=== PATIENT | female | born 1985 | race Hispanic/Latino ===

== ENCOUNTER 2024-04-28 10:32 | Day surgery (SDC) | payer OTHER, SELFPAY ==
[2024-04-28] VITALS (12 sets, daily range): BP systolic 101–130; BP diastolic 60–79; BMI 28.5; BMI 29.8
--- NOTE | 2024-04-28 17:08 | SUR.OPER ---
Pt tearful upon arrival. Offered support, warm blankets and positioning for comfort. Pt has numerous piercings, OR staff in contact with anesthesia, making arrangements for pt to remove jewelry and piercings. Pt's mother @ bedside.
--- NOTE | 2024-04-28 18:08 | W.SUR.POST ---
Surgical Immediate Post Op
Note
Pre Op Diagnosis: Right vulvar abscess, presumed MRSA + given recent exposure
Post Op Diagnosis: Right vulvar abscess, presumed MRSA + given recent exposure
Procedure Performed: Incision and drainage of vulvar hematoma
Primary Surgeon: Corey Mcmullen MD
Anesthesia: IV Sedation
Estimated Blood Loss: 5cc
Specimens/Cultures: wound culture
Doppler/Duplex/Angio (Y/N): N
Complications: None
Operative Findings: 6 x3 cm right vulvar abscess, loculations and purulent drainage, irrigation, then packing placed in wound
[2024-04-28] MEDS: DUONEB 3 ML INH (19:20)
[2024-04-28] MEDS: TORADOL 15 MG IV (19:20)
[2024-04-28] MEDS: NORMOSOL-R/PLASMALYTE-A 1000 IV (19:21)
[2024-04-28] MEDS: DILAUDID 0.5 MG IV ×2 (19:33→22:47)
[2024-04-28 20:45] LABS: ALT (SGPT) 14 U/L (0-35); AST (SGOT) 19 U/L (14-36); Albumin 4.3 g/dl (3.5-5.0); Alkaline Phosphatase 75 U/L (38-126); Blood Urea Nitrogen 10 mg/dl (7-17); Calcium 8.6 mg/dl (8.4-10.2); Carbon Dioxide 18 mmol/L (22-30); Chloride 104 mmol/L (98-107); Estimated Creatinine Clearance 98 ml/min; Glucose 133 mg/dl (70-99); Potassium 4.5 mmol/L (3.5-5.1); Sodium 139 mmol/L (135-145); Total Bilirubin 0.4 mg/dl (0.2-1.3); eGFR > 60.00
--- NOTE | 2024-04-28 20:58 | PHA.VAN.IN ---
Assessment
- Assessment
Renal Function: Unknown baseline
Concomitant Antimicrobials: NONE
- Previous Dosing Experience
Previous Regimen: NONE
AUC Dosing Plan
- Dosing Variables
Dosing Weight (kg): 71.6
Dosing CrCl (ml/min): 98
Vd coefficient (L/kg): 0.7
- Empiric Dosing
Initial / Loading Dose: 1750MG TOTAL
Maintenance Regimen: 1GM IV Q12H
Estimated AUC (mcg*h/mL): 485
Estimated Peak (mcg*h/mL): 31
Estimated Trough (mcg/ml): 12.1
Estimated Half Life (H): 8.1
Pharmacokinetics Vancomycin I
- -
Patient Age: 38
Patient Sex: Female
Vancomycin Day #: 1
Indication: Skin And Soft Tissue ([R] VULVAR ABSCESS)
Requesting Provider: DEB
Height / Weight:
Height 5 ft 1 in
Actual Weight 71.577 kg
- Vital Signs / Lab Results
Temp Pulse Resp BP Pulse Ox
98.6 F 93 18 113/76 95
04/28/24 20:31 04/28/24 20:31 04/28/24 20:31 04/28/24 20:31 04/28/24 20:31
Lab Results - Chemistry
04/28/24
20:00
BUN 10
Creatinine 0.7
Estimated Creat Clear 98
Albumin 4.3
Microbiology Results
04/28/24 17:46 Gram Stain - Preliminary
Abscess
[2024-04-28] MEDS: VANCOCIN 150 IV (21:45)
--- NOTE | 2024-04-28 22:57 | PTCARENOTE ---
Patient arrived from PACU at approximately 1900. Patient AAOx3. VSS as documented. Assessment as documented. Patient w/ surgical wound to R groin from vulvar abscess - wound assessed. Patient oriented to room. Bed in lowest position. Call daley
within reach.
[2024-04-28] MEDS: OFIRMEV 100 IV (23:55)
--- NOTE | 2024-04-29 | PTCARENOTE ---
Patient w/ HRs of 103 and 106 during postop vitals. JUDICIAL REPORTER notified of findings per order. Patient complaining of 'being in a cold sweat'. Patient states this 'cold sweat' feeling has been happening throughout the week prior to surgery due to pain. JUDICIAL REPORTER
notified. One time dose of Ofirmev ordered and administered - see OCT.
[2024-04-29] MEDS: NORMOSOL-R/PLASMALYTE-A 1000 IV (02:48)
[2024-04-29] MEDS: TORADOL 15 MG IV ×3 (02:49→13:17)
[2024-04-29] MEDS: DILAUDID 0.5 MG IV ×4 (02:51→12:43)
[2024-04-29 03:40] VITALS: BP 101/63
[2024-04-29] MEDS: VANCOCIN 200 IV (05:29)
[2024-04-29 06:28] LABS: % Basophils 0.1 % (0-2); % Immature Granulocytes 0.4 % (0-0.5); % Lymphocytes 7.6 % (20.5-51.1); % Monocytes 3.8 % (1.7-9.3); % Neutrophils 88.1 % (42.2-75.2); Absolute Lymphocytes 0.7 10^3/uL (1.2-3.4); Absolute Monocytes 0.4 10^3/uL (0.1-0.6); Absolute Neutrophils 8.5 10^3/uL (1.4-6.5); Hematocrit 31.1 % (37.0-47.0); Hemoglobin 10.5 g/dL (12.0-16.0); Mean Corp Hgb Conc. 33.8 g/dL (33.0-37.0); Mean Corpuscular Hgb 28.9 pg (27.0-31.0); Mean Corpuscular Volume 85.7 fL (81.0-99.0); Mean Platelet Volume 10.2 fL (7.4-10.4); Nucleated Red Blood Cells % 0 %; Platelet Count 333 10^3/uL (130-400); Red Blood Cell Count 3.63 10^6/uL (4.20-5.40); Red Cell Dist. Width 12.2 % (11.5-14.5); White Blood Cell Count 9.6 10^3/uL (4.8-10.8)
[2024-04-29 06:50] LABS: Blood Urea Nitrogen 9 mg/dl (7-17); Carbon Dioxide 20 mmol/L (22-30); Chloride 104 mmol/L (98-107); Estimated Creatinine Clearance 114 ml/min; Potassium 5.1 mmol/L (3.5-5.1); Sodium 139 mmol/L (135-145)
[2024-04-29 07:35] VITALS: BP 116/73
--- NOTE | 2024-04-29 08:36 | W.PN.GYN ---
Today's Communication / Plan
-
advance diet, followup ID and wound care team recommendations
Physician Note
-
S: Patient was evaluated on AM rounds. She reported having moderate incisional pain overnight especially when walking to the bathroom to void since the urine stung her incision. Dilaudid and percocet had controlled her pain. Tolerating clears and
would like advancement in diet. Reports minimal output form drain. Denies SOB, chest pain, nausea/vomiting.
O:
GA: Well appearing female in NAD
Abd: soft, nontender, nondistended
/SCIENTIFIC MANAGER: right vulva erythematous and indurated. no fluctuance. iodoform packing in incision draining minimal purulent output; covered by 4x4 gauze saturated with minimal bloody output, moderately tender.
Extremities: negative LE edema
Intake and Output
04/27/24 04/28/24 04/29/24 04/30/24
06:59 06:59 06:59 06:59
Intake Total 1910 / 1910
Output Total 975 / 975
Balance 935 / 935
Intake:
Oral fluids 360 / 360
IV fluids (Total) 1000 / 1000
IV piggybacks 550 / 550
Output:
Urine, Voided 975 / 975
Vital Signs
Temp Pulse Resp BP Pulse Ox
98.2 F 80 16 116/73 98
04/29/24 07:35 04/29/24 07:35 04/29/24 07:35 04/29/24 07:35 04/29/24 07:35
Lab Results
04/29/24 05:17
04/29/24 05:17
A/P
38yoF POD1 s/p InD right vulvar abscess and recent MRSA exposure. Hgb stable. Patient was afebrile overnight and WBC remained normal.
- Continue IV vancomycin, dosing per pharmacy
- Followup MRSA swab
- Followup OR culture
- Continue contact precautions
- Advance diet to regular
- Discontinue IV fluids
- Continue DVT prophylaxis
- Continue strict Is and Os
- Vitals per nursing protocol
- Ambulate with assistance
- Continue home meds
- Continue toradol/tylenol prn mild/moderate pain; Percocet for severe pain
- Dilaudid for breakthrough pain
- Followup ID recommendations for DC antibiotics
- Followup woundcare recommendations
- Care Management consult for outpatient VNS
- Possible discharge home tonight
--- NOTE | 2024-04-29 08:43 | PHA.VAN.FU ---
Vancomycin Assessment / Plan
- Assessment
Renal Function: Stable
WBC's are: WNL
In the past 24 hrs, patient has been: Afebrile
- Dosing Plan
Continue: Vanc 1000mg Q12H
- Monitoring Plan
No level(s) ordered at this time: consider levels in next few days
- Follow Up
Pharmacy will continue to follow.
Vancomycin Follow UP
- -
Patient Age: 38
Patient Sex: Female
Vancomycin Day #: 2
Indication: Skin And Soft Tissue
Requesting Provider: Dr. Bain
Pertinent Antimicrobial Allergies:
NKDA
Height / Weight:
Height 5 ft 1 in
Actual Weight 71.577 kg
- Vital Signs / Lab Results
Temp Pulse Resp BP Pulse Ox
98.2 F 80 16 116/73 98
04/29/24 07:35 04/29/24 07:35 04/29/24 07:35 04/29/24 07:35 04/29/24 07:35
Lab Results - Hematology
04/29/24
05:17
WBC 9.6
Lab Results - Chemistry
04/28/24 04/29/24
20:00 05:17
BUN 10 9
Creatinine 0.7 0.5 L
Estimated Creat Clear 98 114
Albumin 4.3
Microbiology Results
04/28/24 17:46 Gram Stain - Preliminary
Abscess
--- NOTE | 2024-04-29 08:58 | CON.ID ---
Addendum entered and electronically signed by Minnie Bain MD 04/29/24 11:41:
Primary team planning on discharging patient today.
Can dc on empiric doxycycline 100mg po bid x 10 days.
Will follow OR final cx data; will call pt if need for abx change.
D/W Tila Stopmanjit
Original Note:
Consultation
-
Date/Time Consultation Requested: 04/28/20241813
Date/Time Consultation Performed: 04/29/2024 0900
Requesting Provider: Dr. Corey Mcmullen
Performing Provider: Dr. Minnie Bain
Reason for Consultation: Vulvar abscess
Chief Complaint / Past History
Chief Complaint
Severe vulva pain
History of Present Illness
38 year old female with hx sarcoid, not on tx, who developed pimple like lesion on the right side of vulva Tuesday 04/24. She applied warm compress but it kept enlarging. 04/26, she went to [facility] ED where the abscess was drained. She was
prescribed Bactrim. Her vulva became edematous and very painful. She saw urology on 04/27 who took her to OR the next day s/p I+D of 6x3cm right labial abscess, + purulence noted. Of note, her recently suffered from scrotal abscess s/p I+D
at Urology office 04/05/24 and treated with Bactrim and cephalexin. No cx sent from Urology office. is doing well. Her 9 year old son was the first one with MRSA soft tissue abscesses over the summer, now on bleach bath twice a week and
doing well. She tries not sharing household items. She reports shaving her genital with disposable razor prior to the abscess. No fevers or chills.
Past History
Past Medical History: None
Additional Past Medical History:
Migraines
Asthma
Sarcoid (not on tx)
Additional Past Surgical History:
Tubal ligation
Allergy History:
No Known Allergies Allergy (Verified 04/28/24 16:40)
Medications Reviewed: Yes
Current Antibiotics:
Vancomycin
Social History
Tobacco: Non-Smoker
Alcohol: None
Personal:
Living: With Family
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 )
Family History
Family History: Not Pertinent
Review of Systems
Review of Systems
General: Negative Fever, Chills or Change in Appetite
HEENT: Negative Sinus Problems or Headache
Cardiovascular: Negative Chest Pain
Respiratory: Negative Dyspnea or Cough
Gasteroenterology: Other (no diarrhea); Negative Nausea or Vomiting
Genital / Urological: Negative Flank Pain
Endocrine: Negative Weakness
Skin / Hair / Nails: Negative Rash
Neurological: Negative Dizziness
All systems: All other systems were reviewed and were negative
Vital Signs
Temp Pulse Resp BP Pulse Ox
98.2 F 80 16 116/73 98
04/29/24 07:35 04/29/24 07:35 04/29/24 07:35 04/29/24 07:35 04/29/24 07:35
Physical Exam
Physical Exam
Constitutional: Other (Acute distress with pain during unpacking of wound.)
Eyes: No Conjunctival Hemorrhage and Sclera Anicteric
Cardiovascular: Regular Rate and S1/S2
Pulmonary: Clear
Gastrointestinal: Soft, Non Tender, Non Distended and Normal Bowel Sounds
Genito-Urinary: Negative CVA Tenderness
Extremities: Negative Edema
Wound: Other (Examined with wound ROXANNE Jenkins. Right labia mild induration/erythema. Small wound deep with very long iodoform packing, extreme pain during removal of packing, no pus)
Neurological: AO x 3
Lab / Diagnostic Study Results
04/29/24 05:17
04/29/24 05:17
Abs Immat Gran (auto) 0.0 10^3/uL (0-0.05) 04/29/24 05:17
Absolute Neuts (auto) 8.5 10^3/uL (1.4-6.5) H 04/29/24 05:17
Absolute Lymphs (auto) 0.7 10^3/uL (1.2-3.4) L 04/29/24 05:17
Absolute Monos (auto) 0.4 10^3/uL (0.1-0.6) 04/29/24 05:17
Absolute Basos (auto) 0.0 10^3/uL (0-0.2) 04/29/24 05:17
Immature Gran % 0.4 % (0-0.5) 04/29/24 05:17
Neutrophils % 88.1 % (42.2-75.2) H 04/29/24 05:17
Lymphocytes % 7.6 % (20.5-51.1) L 04/29/24 05:17
Monocytes % 3.8 % (1.7-9.3) 04/29/24 05:17
Eosinophils % 0.0 % (0-6) 04/29/24 05:17
Basophils % 0.1 % (0-2) 04/29/24 05:17
Microbiology Results
Micro:
04/28/24 22:10 MRSA Screen - Pending
Nose
04/28/24 17:46 Wound Culture - Pending
Abscess Gram Stain - Preliminary
04/28/24 17:46 Anaerobic Culture - Pending
Abscess
Assessment / Plan
# Right vulva large abscess s/p I+D 04/28/24.
Suspect MRSA from household transmission
Await OR cx.
MRSA screen pending.
Continue IV Vancomycin for now.
Appreciate wound care.
[2024-04-29] MEDS: SINGULAIR 10 MG PO (09:02)
[2024-04-29] MEDS: PERCOCET 5/325 2 TABLET PO ×2 (09:13→17:28)
--- NOTE | 2024-04-29 10:36 | WOUNDNOTE ---
R VULVA WITH Q TIP
--- NOTE | 2024-04-29 10:37 | WOUNDNOTE ---
WON RN note: Patient admitted with abscess of vulva.
See H&P for complete history. Lives with and 5 children.
PMH: Tubal ligation, UTI, migraines, ex smoker, sarcoidosis and foot surgery.
Wound Location and type/assessment: Patient admitted with: R vulvar abscess that was I&D'd on 04/[address] Mcmullen. Started out as a [facility] patient. At [facility] area drained in ER on 04/24. Recent MRSA exposure at home from child, OR
culture pending. Asked to see patient by Urologist Tila Messina for wound care recommendations. Patient seen along with Dr. Bain, medicated for pain prior by nurse Edwards. Upon removal of packing patient crying out in pain. IV Dilaudid given by nurse
in order to remove remainder of extensive packing. Patient reports that she was told there were many pockets that needed to be drained from abscess. Surrounding tissue of vulva does not appear to be infected, drainage serosanguineous, no odor. Depth
3cm proximally with approximately 2x1 opening. Multiple discussions with Urologist regarding plan of care upon discharge.
Appetite: Good
Pressure redistribution devices in place: Accumax, patient is ad rhonda.
Plan: 1/4' iodoform packing strip placed into 3cm proximal tunnel with tail end visible. Covered with folded 4x4 gauze, ABD pad and mesh underwear. Very painful upon packing, unable to tolerate deeper packing. Confirmed the above dressing with
urologist. Packing to remain in until VN first apt. Once packing removed then daily saline flushes into wound cavity by patient, then dry gauze outer dressing daily and prn drainage. Can shower but careful not to get dressing wet. Patient also to be
seen by wound care center Dr. Gudino next week per urology. Spoke to nurse staff community health Cynthia who confirmed apt is made for next Thursday, patient aware. [facility] is set up upon discharge per note. Teaching done with patient regarding wound care and
above plan. Supplies provided to patient to take home upon discharge. Ice pack given to patient upon request. Updated Urologist Mayuri and confirmed on the above plan.
Updated nurse Grace, care plan and will follow as needed.
Note to case management of equipment requested for discharge:
Recommend follow up at wound care center upon discharge.
[2024-04-29] MEDS: NORMOSOL-R/PLASMALYTE-A IV (11:01)
--- NOTE | 2024-04-29 11:11 | CM ---
Addendum entered by Maribel Ordaz RN 04/29/24 16:25:
Patient and attending updated.
Addendum entered by Maribel Ordaz RN 04/29/24 15:58:
[facility] has accepted the patient per [facility] Liaison. Start of service is Thursday.
[facility]
Original Note:
Reviewed the chart notes and spoke with the patient at the bedside. CM consult for VN/homecare received and referral sent to [facility]. Patient will be residing with her [id number] due to family home being renovated. Address: [address] [place] [address]
[place] [address]. The patient resides with her spouse and five children in a two story home with three steps to enter. The patient has a nebulizer in home and has had VN in past, but could not recall the name of the agency. The patient
confirmed her pharmacy of choice is the [facility]. CM continues to be available to patient/family and is monitoring medical plan for needs at discharge.
Plan: Discharge to home with VN services. Per urology, once packing removed at home by VN patient will need to daily saline flushes.
[2024-04-29 11:14] VITALS: BP 117/73
[2024-04-29 15:30] VITALS: BP 112/59
--- NOTE | 2024-04-30 12:51 | W.PN.UPDATE ---
Update Note
Progress Note Update
Reviewed OR cx: MRSA intermediate to tetracycline, sensitive to T/sulfa, clindamycin.
I called and spoke to patient. I instructed her to stop the doxycycline. She is to resume Bactrim DS 1 tab bid; she has six days worth left which should be fine since abscess has been drained.
== END 2024-04-29 18:04 | disposition home or self-care (01) ==
LOC: SDS 10:32
PROVIDERS: ATTENDING PHYSICIAN Obstetrics & Gynecology; CONSULT PHYSICIAN Internal Medicine Infectious Disease
DX: N76.4 Abscess of vulva (principal)
CPT/HCPCS: 56405; 80051; 80053; 82565; 84520; 85025; 87070; 87075; 87147; 87186; 87205; 94640

== ENCOUNTER → 2024-05-06 09:49 | Outpatient (REF) | payer OTHER, SELFPAY | LOC: WOUND 09:49 | PROVIDERS: ATTENDING PHYSICIAN Surgery; FAMILY PHYSICIAN Family Medicine | DX: N76.4 Abscess of vulva (principal); D86.9 Sarcoidosis, unspecified; A49.02 Methicillin resistant Staphylococcus aureus infection, unspecified site | CPT/HCPCS: 99203 ==